=== PATIENT | male | born 1990 ===

== ENCOUNTER 2017-09-12 14:09 | Emergency (ER) | payer OTHER ==
[~2017-09-12] VITALS: Ht 185.4 cm; Wt 99.8 kg
[~2017-09-12 14:09] MED LIST: SEPTRA DS TABLE1 TAB PO
== END 2017-09-12 18:51 | disposition home or self-care (01) ==
LOC: ER 14:09
DX: R07.89 Other chest pain (principal); F06.4 Anxiety disorder due to known physiological condition